=== PATIENT | male | born 1940 ===

== ENCOUNTER 2022-09-17 13:34 | Outpatient (CLI) | payer BC ==
[2022-09-17 22:01] VITALS: BP 129/79
--- NOTE | 2022-09-17 22:01 | SLEEP CARE CONSULTATION ---
Information from patient questionnaire entered by Fartun Gonzalez. I have reviewed and concur with the information entered by Fartun Gonzalez. This document represents the service I personally performed and the decisions made by me, Madison Jiménez MD, [facility]. History of Present Illness Service Date and Time: 09/17/2022 1334 Reason for Visit: New patient Additional HPI information: I had the pleasure of seeing Mr. Rodriguez and his today regarding obstructive sleep apnea-hypopnea. As you know, he is a 81 year old gentleman who was diagnosed with the sleep-disordered breathing at a hospital in [place] in 2001. The sleep study report is not available but his said he was the worst case they ever had there. He was prescribed a CPAP device set at 14 cmH2O . His current machine is a ResMed AirSense 10 that he acquired from a relative. He is not sure what pressure is set on it. He uses it occasionally. The compliance report is not available as we are unable to download his memory card. He wears a ResMed Quattro full face mask. He used to get his supplies from [facility]. He finds the treatment beneficial. Since he was diagnosed with the sleep-related breathing disorder, he has lost 30 lbs. He would like to know if he still needs to use the CPAP. He says he snores but does not stop breathing when not using the CPAP. However, he is sleepy all the time. Past Medical History Past Medical History: reports: Hypertension Social History The patient's occupation is a RE. Patient is and lives in . Allergies and Home Medications Drug allergies reviewed: Yes Home medication list reviewed: Yes Review of Systems Cardiovascular: reports: high blood pressure Respiratory: reports: shortness of breath Ear/Nose/Throat: denies: nasal congestion, sinus problems, nose bleeds, dry mouth/throat, hoarseness, injury to nose, tonsillectomy, wisdom teeth removed, other Physical Exam Vital signs obtained and entered by: Cayden Jiménez Blood Pressure: 129/79 Cuff size: regular Heart Rate: 80 O2 Saturation: 97 Height: 5 ft 7 in Weight: 170 lb Body Mass Index: 26.6 BMI Classification: Overweight Mood/affect: flat HEENT: No craniofacial malformation Nostrils: patent to airflow Turbinates: normal Septum: midline Mouth and throat: narrow oropharynx Soft palate: long Hard palate: normal Uvula: normal Uvula visualization: 25% Mallampati Class III Tongue: enlarged in size with teeth messer on lateral edges Tonsils: small Chin and jaw: normal size and position Neck: normal w/o lymphadenopathy or thyromegaly Heart: regular rate and rhythm Lungs: clear bilaterally Extremities: no edema or clubbing Neurologic: intact Impression and Plan IMPRESSION: 1. Obstructive Sleep Apnea-Hypopnea Syndrome, as previously diagnosed. The exact severity is unknown. He did lose 30 lbs since the diagnosis but his upper airway remains extremely narrow. I recommend proceeding to an in-laboratory polysomnography to confirm the diagnosis and to assess severity. I informed the patient of what the sleep studies involve and after some discussion, he agreed to proceed. Plan: 1. Repeat in-laboratory polysomnography. 2. Return for follow up after the sleep study. 3. Primary care provider to consider discontinuing trazodone for sleep because he now has difficulty staying awake. Follow up with [facility] in: 1-2 months Plan: in-lab PSG Visit Type: In Office Other Participants: Spouse/Significant Other Time Spent with Patient (minutes): 15 Provider Statement: I spent 100% of the Face to Face Visit with the patient with greater than 50% spent counseling the patient and coordination of care.
== END 2022-09-17 13:35 | disposition home or self-care (01) ==
LOC: SC 13:34
PROVIDERS: ATTEND Internal Medicine Pulmonary Disease
DX: G47.33 Obstructive sleep apnea (adult) (pediatric) (principal)
CPT/HCPCS: 99202; 99212

== ENCOUNTER 2022-10-10 19:55 | Outpatient (CLI) | payer BC | END 2022-10-10 19:56 | disposition home or self-care (01) | LOC: SC 19:55 | PROVIDERS: ATTEND Internal Medicine Pulmonary Disease | DX: G47.33 Obstructive sleep apnea (adult) (pediatric) (principal); G47.61 Periodic limb movement disorder | CPT/HCPCS: 95810 ==

== ENCOUNTER 2022-10-15 13:10 | Outpatient (CLI) | payer BC | END 2022-10-15 13:11 | disposition EMS.NT | LOC: EMS 13:10 | DX: Z03.89 Encounter for observation for other suspected diseases and conditions ruled out (principal) ==

== ENCOUNTER 2022-12-31 02:30 | Outpatient (CLI) | payer BC | END 2022-12-31 02:31 | disposition EMS.NT | LOC: EMS 02:30 | DX: Z03.89 Encounter for observation for other suspected diseases and conditions ruled out (principal) ==

== ENCOUNTER 2023-01-04 19:36 | Outpatient (CLI) | payer BC | END 2023-01-04 19:37 | disposition EMS.NT | LOC: EMS 19:36 | DX: Z03.89 Encounter for observation for other suspected diseases and conditions ruled out (principal) ==

== ENCOUNTER 2023-06-04 16:14 | Outpatient (CLI) | payer BC | END 2023-06-04 16:15 | disposition short-term general hospital (02) | LOC: EMS 16:14 | DX: U07.1 COVID-19 (principal) | CPT/HCPCS: A0425; A0429 ==

== ENCOUNTER 2023-07-02 15:33 | Outpatient (CLI) | payer BC | END 2023-07-02 23:59 | disposition EMS.NT | LOC: EMS 15:33 | DX: R45.1 Restlessness and agitation (principal); Z72.820 Sleep deprivation ==

== ENCOUNTER 2023-08-21 22:48 | Outpatient (CLI) | payer BC | END 2023-08-21 23:59 | disposition short-term general hospital (02) | LOC: EMS 22:48 | DX: M54.50 Low back pain, unspecified (principal); I95.9 Hypotension, unspecified; W18.39XA Other fall on same level, initial encounter; Y92.009 Unspecified place in unspecified non-institutional (private) residence as the place of occurrence of the external cause | CPT/HCPCS: A0425; A0427 ==